=== PATIENT | female | born 1995 | race Two or more races ===

== ENCOUNTER 2017-08-30 20:52 | Emergency (ER) | payer MEDICAID ==
[~2017-08-30] VITALS: Ht 160 cm; Wt 66.0 kg
[2017-08-30 22:44] VITALS: BP 121/67
[2017-08-30] MEDS ORDERED: ALBUTEROL (0.083%) 2.5MG/3ML NEB HHN ONE (22:45)
[2017-08-30 23:28] LABS: BASOPHILS % 0.3 % (0.0-2.0); EOSINOPHILS % 0.7 % (0.0-5.0); HEMATOCRIT. 40.2 % (36.0-48.0); HEMOGLOBIN. 13.8 g/dL (12.0-16.0); LYMPHOCYTES % 25.8 % (20.0-50.0); MEAN CORPUSCULAR HEMOGLOBIN 30.5 pg (28.0-32.0); MEAN PLATELET VOLUME 9.9 fl (7.4-10.4); MONOCYTES % 7.8 % (2.0-8.0); NEUTROPHILS % 65.4 % (40.0-76.0); PLATELET 194 x1000/uL (130-400); RED BLOOD CELL COUNT 4.52 mill/uL (4.2-5.4); RED CELL DISTRIBUTION WIDTH 13.8 % (11.6-14.6)
[2017-08-30 23:32] LABS: CHLORIDE 104 mEq/L (98-107)
== END 2017-08-31 00:45 | disposition home or self-care (01) ==
LOC: ER 20:52
DX: J06.9 Acute upper respiratory infection, unspecified (principal); R00.0 Tachycardia, unspecified
CPT/HCPCS: 36415; 71045; 80048; 81025; 85025; 87804; 94640; 99285; J7611